=== PATIENT | male | born 1985 | race African-American/Black ===

== ENCOUNTER 2024-01-24 10:18 | Emergency (ER) | payer OTHER ==
[~2024-01-24] VITALS: Ht 172.7 cm; Wt 86.2 kg
[2024-01-24 10:22] VITALS: BP 125/79; PULSE 72; RESP 16; TEMP 97.6; O2SAT 98
[2024-01-24] MEDS: KETOROLAC 30 MG/ML VIAL IM ONE (11:04)
[2024-01-24] MEDS ORDERED: LID5T TP (11:23)
[2024-01-24] MEDS ORDERED: METH-1681 PO (11:23)
[2024-01-24] MEDS ORDERED: KETO10TA2 PO (11:23)
== END 2024-01-24 11:35 | disposition home or self-care (01) ==
LOC: MED 10:18
DX: M54.17 Radiculopathy, lumbosacral region (principal)
CPT/HCPCS: 96372; 99284; J1885